=== PATIENT | female | born 1955 | race Caucasian/White ===

== ENCOUNTER 2017-05-03 06:27 | Day surgery (SDC) | payer BC ==
[2017-04-28 10:19] VITALS: BMI 25.8
[2017-05-03] MEDS ORDERED: BACITRACIN 3.5 GM OPTHALMIC OINT TUBE ONE (07:13)
[2017-05-03] MEDS ORDERED: BUPIVACAINE HCL/PF 0.5% (5MG/ML) 10 ML VIAL ONE (07:13)
[2017-05-03] MEDS ORDERED: POVIDONE-IODINE 5% OPHTHALMIC PREP 30 ML SOLUTION ONE (07:13)
[2017-05-03] MEDS ORDERED: LIDOCAINE 1%-EPI 1:100,000 30 ML MDV IJ ONE ×2 (07:13→07:31)
[2017-05-03] MEDS ORDERED: THROMBIN (BOVINE) 5,000 UNIT VIAL TP ONE ×3 (07:31→09:01)
[2017-05-03] MEDS ORDERED: TETRACAINE 0.5% OPHTH SOLN 2 ML BOTTLE ONE (07:31)
[2017-05-03] MEDS ORDERED: OXYMETAZOLINE 0.05% NASAL SOLUTION 15 ML BOTTLE NS ONE (07:31)
[2017-05-03] MEDS ORDERED: PROPOFOL 20 ML ONE ×4 (07:34→09:24)
[2017-05-03] MEDS ORDERED: MIDAZOLAM HCL 2 MG/2 ML SINGLE DOSE VIAL ONE ×2 (07:35)
[2017-05-03] MEDS ORDERED: CLINDAMYCIN PHOSPHATE 600 MG/4 ML VIAL ONE (08:01)
[2017-05-03] MEDS ORDERED: ONDANSETRON 4 MG/2 ML VIAL ONE (09:15)
[2017-05-03] MEDS ORDERED: ACETAMINOPHEN 500 MG TABLET (FP) PO PRN (10:01)
[2017-05-03] MEDS ORDERED: ONDANSETRON 4 MG/2 ML VIAL IVPUSH PRN (10:07)
[2017-05-03] MEDS ORDERED: LACTATED RINGERS SOLUTION 1,000 ML IV SCH (10:15)
[2017-05-03] MEDS ORDERED: ONDANSETRON 4 MG/2 ML VIAL IVPUSH ONE (10:23)
[2017-05-03] MEDS ORDERED: oxyCODONE HCL 5 MG TABLET PO PRN (10:48)
[2017-05-03] MEDS ORDERED: oxyCODONE HCL 5 MG TABLET ONE (11:22)
[2017-05-03 11:46] VITALS: PULSE 71; TEMP 98
[2017-05-03 12:38] VITALS: BP 137/79
--- NOTE | 2017-05-04 09:55 | OP ---
DATE OF OPERATION: 05/03/2017 PREOPERATIVE DIAGNOSIS: Epiphora, nasal lacrimal obstruction, right. POSTOPERATIVE DIAGNOSIS: Epiphora, nasal lacrimal obstruction, right. PROCEDURE: 1. External dacryocystorhinostomy, right. 2. Silicone intubation, right lacrimal system. 3. Lacrimal sac biopsy. 4. Partial ethmoidectomy. 5. Endoscopy. SURGEON: Shilpa Osorio MD ANESTHESIA: Local with sedation. ESTIMATED BLOOD LOSS: Maybe 50 mL. COMPLICATONS: None. OPERATION REPORT: Patient was brought to the operating room, placed on the operating room table. Vital signs monitored by Anesthesia. Tetracaine was placed in both eyes. A tear trough incision was marked in the right tear trough. Time-out was performed, and a 50/50 mixture of 2% Xylocaine with 1:100,000 epinephrine was injected in the tear trough, nasal third of the upper and lower lids, lateral wall of the nose, dorsal nasal artery, with a total of 4 to 5 mL. With nasal speculum, the right naris was marked, was injected with 2% Xylocaine with 1:100,000 epinephrine in the area of the middle meatus, uncinate process, middle turbinate, septum and external naris. Following this, the following procedure was performed. The patient was prepped and draped in the usual sterile fashion. Tear trough incision was made in the previously marked tear trough on the right side, and this was carried down through deep tissues with gentle blunt spreading with a curved David scissors. Bleeding was encountered early on, and cautery was used with a Chisago needle for hemostasis, and this was continued down to the anterior lacrimal crest, which was identified as was the anterior limb of the medial canthal tendon. Once that was identified, periosteum overly the anterior lacrimal crest and the anterior limb of the medial canthal tendon was incised with a Chisago needle. Periosteum was reflected laterally, exposing the lacrimal sac fossa. There was bleeding, which was cauterized. The entire lacrimal crest fossa was visualized. The posterior lacrimal sac flap was penetrated with a hemostat. Upbiting Kerrison rongeurs were used to create an osteotomy centered on the anterior lacrimal crest extending to the medial canthal tendon to the nasolacrimal duct. There was more than usual bleeding. Patient was placed in reverse Trendelenburg, and cautery was used as well as cottonoids with thrombin packing for hemostasis. Once upbiting Kerrison rongeurs were used to create an osteotomy as noted, the nasal mucosa was injected with 2% Xylocaine with 1:100,000 epinephrine. The upper and lower puncta were dilated and intubated. There was restriction at the junction of the sac, which was bypassed with the probe . Then, the medial wall of the sac was incised with the 12 blade creating anterior and posterior lacrimal sac flaps. Posterior lacrimal sac flap was biopsied. Ethmoidal air cells that were preventing posterior rotation of the flap were excised along with the lacrimal bone using Kerrison creating a partial ethmoidectomy. Hemostasis was achieved with a Chisago needle again. Antibiotic irrigation was used, and then nasal mucosa was incised vertically, and anterior nasal mucosal flap was created. The system was intubated with Gonzalez intubation probes and retrieved with a Gonzalez hook through the right external naris, then moved freely through the system. The anterior lacrimal sac flap was secured to the anterior nasal mucosal flap with a mattress 4-0 chromic suture and also to the periosteum at the anterior osteotomy. Additional interrupted 4-0 chromic sutures were used to close the anterior lacrimal sac flaps periosteum superiorly and inferiorly. The silicone stents still moved freely. The subcuticular tissue was closed after antibiotic irrigation with 5-0 chromic, and the skin was closed with interrupted and running 6-0 plain suture with plastic technique avoiding any canalicular web. The stents were removed from the probe and tied with locking knots and secured to the right external naris internally with a single 6-0 Prolene suture with minimal tension on the loop and right medial canthus. Endoscope was introduced into the nose, demonstrating good positioning of the silicone stents without impingement. A small amount of Surgicel had been used to pack the anterior ethmoidal cells that had been extubated to encourage hemostasis. Afrin was sprayed in the nose. Bacitracin ointment was placed on the sutures, and the patient was taken to the recovery room in stable condition. SHILPA OSORIO M.D. [id number]
--- NOTE | 2017-05-05 12:01 | PATH ---
Surgical Pathology Report Patient Name: XIANG CABELLO [facility]. Rec. #: [id number] /Age/Gender: 1955 (Age: 62) / F Account: [id number] Location: [facility] AMBULATORY Taken: 05/03/2017 Received: 05/03/2017 Reported: 05/05/2017 Physicians: Robert Briggs Specimen(s) Received A: BONE NASAL B: LACRIMAL SAC BX Clinical History Partial nasal lacrimal obstruction right Final Diagnosis A. NASAL BONE, PARTIAL EXCISION: PORTIONS OF UNREMARKABLE BONE. B. LACRIMAL SAC, BIOPSY: BENIGN FIBROVASCULAR TISSUE WITH MILD CHRONIC INFLAMMATION, AND PORTIONS OF CLOTTED BLOOD. Electronically Signed Jeremy Rios M.D. Gross Description A. Received in formalin labeled "nasal bone," is a 1.0 x 0.6 x 0.2 cm aggregate of merlos bone fragments. The formalin is filtered and the specimen is entirely submitted in one cassette, following decalcification. B. Received in formalin labeled "lacrimal sac biopsy," is a 0.3 cm greatest dimension merlos brown possible bone fragment. The specimen is submitted in toto in one cassette, following decalcification. /05/04/2017 saudi05/04/2017
== END 2017-05-03 12:20 | disposition home or self-care (01) ==
LOC: FASU 06:27
PROVIDERS: ATTEND Ophthalmology
PROC: 09BU0ZZ Excision of Right Ethmoid Sinus, Open Approach (ICD-10-PCS; 2017-05-03)
PROC: 081X0Z3 Bypass Right Lacrimal Duct to Nasal Cavity, Open Approach (ICD-10-PCS; principal; 2017-05-03 08:22)
DX: H04.201 Unspecified epiphora, right side (principal); H04.512 Dacryolith of left lacrimal passage
CPT/HCPCS: 88304-TC; 88311-TC; 94760